=== PATIENT | female | born 1955 | race Two or more races ===

== ENCOUNTER 2022-01-07 13:16 | Emergency (ER) | payer OTHER, MEDICAID ==
[~2022-01-07] VITALS: Ht 172.7 cm; Wt 85.0 kg
[2022-01-07 13:30] VITALS: BP 179/87
== END 2022-01-07 14:56 | disposition home or self-care (01) ==
LOC: ER 13:16
DX: Z00.00 Encounter for general adult medical examination without abnormal findings (principal); I10 Essential (primary) hypertension; E78.00 Pure hypercholesterolemia, unspecified
CPT/HCPCS: 99281